=== PATIENT | female | born 1945 | race Caucasian/White ===

== ENCOUNTER 2020-02-29 11:47 | Emergency (ER) | payer OTHER ==
[2020-02-29] MEDS ORDERED: ONDANSETRON 4 MG/2 ML VIAL ONE (12:49)
[2020-02-29] MEDS ORDERED: MECLIZINE HCL 12.5 MG TAB ONE (12:50)
[2020-02-29] MEDS ORDERED: NA CHLORIDE 0.9% 2,000 ML ONE (12:50)
[2020-02-29 12:56] LABS: Absolute Lymphocytes (CBC) 0.8 K/uL (0.7-4.9); Basophils % 0.6 % (0-1.3); Hematocrit 39.5 % (36.0-45.0); Lymphocytes % 12.5 % (15.3-44.8); MPV 8.2 fL (7.6-11.3); RBC Red Blood Cell Count 4.23 M/uL (3.86-4.86)
[2020-02-29 12:57] LABS: Protime INR 0.93
--- NOTE | 2020-02-29 13:10 | RAD REPORT ---
EXAM DESCRIPTION: Humberto Single View02/29/2020 12:57 pm CLINICAL HISTORY: Congestion COMPARISON: none FINDINGS: The lungs appear clear of acute infiltrate. The heart is normal size. 17 millimeter scler otic density overlies the proximal left humerus IMPRESSION: 17 millimeter sclerotic density overlies the proximal left humerus. Follow-up x-ray 2 mo nths recommended to assess stability
[2020-02-29 13:20] LABS: ALT/SGPT 25 U/L (12-78); AST/SGOT 15 U/L (15-37); Alkaline Phosphatase 57 U/L (45-117); BUN Blood Urea Nitrogen 24 mg/dL (7-18); Bicarbonate 28 mmol/L (21-32); Bilirubin Direct 0.1 mg/dL (0-0.2); Bilirubin Total 0.6 mg/dL (0.2-1.0); Glucose Level 122 mg/dL (74-106); Magnesium 2.4 mg/dL (1.8-2.4); NT PRO-BNP 42 pg/mL (<125); Potassium 3.9 mmol/L (3.5-5.1); Protein, Total 7.4 g/dL (6.4-8.2); Sodium Level 141 mmol/L (136-145); Troponin (Emerg Dept Use Only) < 0.02 ng/mL (0.0-0.045)
--- NOTE | 2020-02-29 13:48 | RAD REPORT ---
EXAM DESCRIPTION: CT - Head Brain Wo Cont - 02/29/2020 1:27 pm CLINICAL HISTORY: Dizziness COMPARISON: None. TECHNIQUE: Computed axial tomography of the head was obtained. IV contrast was not requested. All CT scans are performed using dose optimization technique as appropriate and may include automated exposure control or mA/KV adjustment according to patient size. FINDINGS: An intracranial bleed is not seen . The ventricles are normal in caliber. No extra-axial fluid collection is noted. Fluid within the sinuses/ mastoids is not seen. IMPRESSION: No acute intracranial abnormality is seen. If patient's symptoms persist MRI of the bra in would be recommended.
--- NOTE | 2020-02-29 14:29 | ER ---
Nurse's Notes [facility] Name: Migdalia Victor Age: 74 yrs Sex: Female : 1945 Arrival Date: 02/29/2020 Time: 11:49 Bed 7 Private MD: Diagnosis: Dizziness and giddiness-benign positional vertigo Presentation: 02/28 12:07 Chief complaint: Patient states: Dizziness off and on x 1 week ago, reports vomited aa5 once 1 week ago and reports vomiting today. Pt states 'My left ear has been clogged for about a week now". 12:07 Coronavirus screen: Client denies travel out of the [place] in the last 14 days. At this aa5 time, the client does not indicate any symptoms associated with coronavirus-19. Ebola Screen: Patient negative for fever greater than or equal to 101.5 degrees Fahrenheit, and additional compatible Ebola Virus Disease symptoms. Initial Sepsis Screen: Does the patient meet any 2 criteria? No. Patient's initial sepsis screen is negative. Does the patient have a suspected source of infection? No. Patient's initial sepsis screen is negative. Risk Assessment: Do you want to hurt yourself or someone else? Patient reports no desire to harm self or others. Onset of symptoms was 2019. 12:07 Acuity: JULIANA 3 aa5 12:07 Method Of Arrival: Ambulatory aa5 Historical: - Allergies: 12:07 Sulfa (Sulfonamide Antibiotics); aa5 12:07 Other Unknown antibiotic; aa5 - PMHx: 12:07 Arthritis; Asthma; Kidney stones; aa5 - PSHx: 12:07 Kidney stone removal; aa5 - Immunization history:: Adult Immunizations unknown. - Social history:: Smoking status: Patient denies any tobacco usage or history of. Patient/guardian denies using alcohol, street drugs, The patient lives with family. - Family history:: not pertinent. Screenin:25 Abuse screen: Denies threats or abuse. Denies injuries from another. Nutritional ca1 screening: No deficits noted. Tuberculosis screening: No symptoms or risk factors identified. Fall Risk IV access (20 points). Assessment: 12:25 General: Appears in no apparent distress. comfortable, Behavior is calm, cooperative, ca1 appropriate for age. Pain: Denies pain. Neuro: Level of Consciousness is awake, alert, obeys commands, Oriented to person, place, time, situation, Reports dizziness, since yesterday. Cardiovascular: Heart tones S1 S2 present Capillary refill < 3 seconds Patient's skin is warm and dry. Rhythm is sinus rhythm. Respiratory: Airway is patent Respiratory effort is even, unlabored, Respiratory pattern is regular, symmetrical, Breath sounds are clear bilaterally. GI: Abdomen is flat, non-distended, Bowel sounds present X 4 quads. Abd is soft and non tender X 4 quads. Reports nausea, vomiting, since yesterday. : No signs and/or symptoms were reported regarding the genitourinary system. EENT: No signs and/or symptoms were reported regarding the EENT system. Derm: Skin is intact, is healthy with good turgor, Skin is pink, warm \\T\\ dry. Musculoskeletal: Circulation, motion, and sensation intact. Capillary refill < 3 seconds. 13:19 Reassessment: PT to CT via stretcher. ca1 13:39 Reassessment: Patient appears in no apparent distress at this time. Patient and/or ca1 family updated on plan of care and expected duration. Pain level reassessed. Patient is alert, oriented x 3, equal unlabored respirations, skin warm/dry/pink. 14:40 Reassessment: Patient appears in no apparent distress at this time. Patient and/or ca1 family updated on plan of care and expected duration. Pain level reassessed. Patient is alert, oriented x 3, equal unlabored respirations, skin warm/dry/pink. Patient states feeling better. 15:00 Reassessment: Patient is alert, oriented x 3, equal unlabored respirations, skin aa5 warm/dry/pink. Pt ambulatory to restroom with steady gait and without complaints, pt denies dizziness, pt states feeling better. MD notified. . Vital Signs: 12:07 BP 131 / 76; Pulse 78; Resp 18 S; Temp 98.0(O); Pulse Ox 96% on R/A; Weight 63.5 kg aa5 (R); Height 5 ft. 0 in. (152.40 cm) (R); Pain 0/10; 12:58 BP 134 / 69; Pulse 66; Resp 12; Temp 97.8(O); Pulse Ox 97% on R/A; mh5 13:39 BP 136 / 64; Pulse 67; Resp 15 S; Pulse Ox 98% on R/A; ca1 14:40 BP 115 / 69; Pulse 73; Resp 16 S; Pulse Ox 95% on R/A; ca1 12:07 Body Mass Index 27.34 (63.50 kg, 152.40 cm) aa5 ED Course: 11:49 Patient arrived in ED. ag5 12:07 Arm band placed on Patient placed in an exam room, on a stretcher. aa5 12:09 Kanchan Khan MD is Attending Physician. ma2 12:25 Triage completed. aa5 12:26 Patient has correct armband on for positive identification. Placed in gown. Bed in low mh5 position. Call light in reach. Side rails up X2. Warm blanket given. Pillow given. ekg monitor tech on. Pulse ox on. NIBP on. 12:27 Clari Greenwood, ANA is Primary Nurse. ca1 12:27 No provider procedures requiring assistance completed. Initial lab(s) drawn, by me, ca1 sent to lab. Inserted saline lock: 22 gauge in right antecubital area, using aseptic technique. Blood collected. 12:57 XRAY Chest (1 view) In Process Unspecified. EDMS 13:26 CT completed. Patient tolerated procedure well. Patient moved back from CT. bq 13:27 CT Head Brain wo Cont In Process Unspecified. EDMS 15:17 IV discontinued, intact, bleeding controlled, No redness/swelling at site. Pressure ca1 dressing applied. Administered Medications: 12:27 Drug: NS 0.9% 1000 ml Route: IV; Rate: 1 bolus; Site: right antecubital; ca1 13:30 Follow up: Response: No adverse reaction; IV Status: Completed infusion; IV Intake: ca1 1000ml 12:28 Drug: Zofran (Ondansetron) 4 mg Route: IVP; Site: right antecubital; ca1 14:41 Follow up: Response: No adverse reaction; Nausea is decreased ca1 13:09 Drug: Meclizine 50 mg Route: PO; ca1 14:42 Follow up: Response: No adverse reaction; Marked relief of symptoms ca1 13:14 Not Given (Physician Discretion): NS 0.9% 1000 ml IV at 1 bolus Per protocol; 1000 mL ca1 bolus Intake: 13:30 IV: 1000ml; Total: 1000ml. ca1 Outcome: 14:29 Discharge ordered by MD. giraldo 15:17 Discharged to home ambulatory. ca1 15:17 Condition: improved 15:17 Discharge instructions given to patient, Instructed on discharge instructions, follow up and referral plans. medication usage, Demonstrated understanding of instructions, follow-up care, medications, Prescriptions given X 1. 15:18 Patient left the ED. ca1 Signatures: Dispatcher [employer] EDCharlotte Pack Audri, RN RN [id number] Asya Babcock Mohammad, MD MD ma2 Clari Greenwood RN RN ca1 Kim, Sera 5
--- NOTE | 2020-02-29 14:29 | EDPHYS ---
Physician Documentation [facility] Name: Migdalia Victor Age: 74 yrs Sex: Female : 1945 Arrival Date: 02/29/2020 Time: 11:49 Bed 7 Private MD: ED Physician Kanchan Khan HPI: 02/28 14:24 This 74 yrs old Female presents to ER via Ambulatory with complaints of ma2 Dizziness, Vomiting. 14:24 The patient presents with dizziness. Onset: The symptoms/episode began/occurred ma2 gradually, 3 day(s) ago. Context: occurred at home. Associated signs and symptoms: Pertinent negatives: ataxia, blurred vision, combativeness, confusion, diaphoresis, focal weakness. Severity of symptoms: At their worst the symptoms were mild in the emergency department the symptoms have resolved. The patient has experienced a previous episode. on and off vertigo feels room is speiing and hearing issue with left ear.. her symptoms are sudden on and off.. and solely positional . Historical: - Allergies: 12:07 Sulfa (Sulfonamide Antibiotics); aa5 12:07 Other Unknown antibiotic; aa5 - PMHx: 12:07 Arthritis; Asthma; Kidney stones; aa5 - PSHx: 12:07 Kidney stone removal; aa5 - Immunization history:: Adult Immunizations unknown. - Social history:: Smoking status: Patient denies any tobacco usage or history of. Patient/guardian denies using alcohol, street drugs, The patient lives with family. - Family history:: not pertinent. ROS: 14:24 Constitutional: Negative for fever, chills, and weight loss. ma2 14:24 All other systems are negative. Exam: 14:24 Constitutional: This is a well developed, well nourished patient who is awake, alert, ma2 and in no acute distress. Head/Face: Normocephalic, atraumatic. Eyes: Pupils equal round and reactive to light, extra-ocular motions intact. Lids and lashes normal. Conjunctiva and sclera are non-icteric and not injected. Cornea within normal limits. Periorbital areas with no swelling, redness, or edema. ENT: Nares patent. No nasal discharge, no septal abnormalities noted. Tympanic membranes are normal and external auditory canals are clear. Oropharynx with no redness, swelling, or masses, exudates, or evidence of obstruction, uvula midline. Mucous membranes moist. Neck: Trachea midline, no thyromegaly or masses palpated, and no cervical lymphadenopathy. Supple, full range of motion without nuchal rigidity, or vertebral point tenderness. No Meningismus. Chest/axilla: Normal chest wall appearance and motion. Nontender with no deformity. No lesions are appreciated. Cardiovascular: Regular rate and rhythm with a normal S1 and S2. No gallops, murmurs, or rubs. Normal PMI, no JVD. No pulse deficits. Respiratory: Lungs have equal breath sounds bilaterally, clear to auscultation and percussion. No rales, rhonchi or wheezes noted. No increased work of breathing, no retractions or nasal flaring. Abdomen/GI: Soft, non-tender, with normal bowel sounds. No distension or tympany. No guarding or rebound. No evidence of tenderness throughout. Back: No spinal tenderness. No costovertebral tenderness. Full range of motion. MS/ Extremity: Pulses equal, no cyanosis. Neurovascular intact. Full, normal range of motion. Neuro: Awake and alert, GCS 15, oriented to person, place, time, and situation. Cranial nerves II-XII grossly intact. Motor strength 5/5 in all extremities. Sensory grossly intact. Cerebellar exam normal. Normal gait. Psych: Awake, alert, with orientation to person, place and time. Behavior, mood, and affect are within normal limits. Vital Signs: 12:07 BP 131 / 76; Pulse 78; Resp 18 S; Temp 98.0(O); Pulse Ox 96% on R/A; Weight 63.5 kg aa5 (R); Height 5 ft. 0 in. (152.40 cm) (R); Pain 0/10; 12:58 BP 134 / 69; Pulse 66; Resp 12; Temp 97.8(O); Pulse Ox 97% on R/A; mh5 13:39 BP 136 / 64; Pulse 67; Resp 15 S; Pulse Ox 98% on R/A; ca1 14:40 BP 115 / 69; Pulse 73; Resp 16 S; Pulse Ox 95% on R/A; ca1 12:07 Body Mass Index 27.34 (63.50 kg, 152.40 cm) aa5 MDM: 12:09 Patient medically screened. ma2 14:24 Differential diagnosis: head injury, hypovolemia, vertigo. Data reviewed: vital signs, ma2 nurses notes. Counseling: I had a detailed discussion with the patient and/or guardian regarding: the historical points, exam findings, and any diagnostic results supporting the discharge/admit diagnosis, the presence of at least one elevated blood pressure reading (>120/80) during this emergency department visit, the need for outpatient follow up. Response to treatment: the patient's symptoms have markedly improved after treatment. 02/28 12:28 Order name: Basic Metabolic Panel; Complete Time: 13:36 dc02/28 12:28 Order name: CBC with Diff; Complete Time: 13:16 dc02/28 12:28 Order name: LFT's; Complete Time: 13:36 dc02/28 12:28 Order name: Magnesium; Complete Time: 13:36 02/28 12:28 Order name: NT PRO-BNP; Complete Time: 13:36 dc02/28 12:28 Order name: PT-INR; Complete Time: 13:16 dc02/28 12:28 Order name: CT Head Brain wo Cont; Complete Time: 14:02 dc2 02/28 12:28 Order name: Troponin (emerg Dept Use Only); Complete Time: 13:36 ma02/28 12:28 Order name: XRAY Chest (1 view); Complete Time: 13:16 02/28 12:28 Order name: EKG; Complete Time: 12:28 dc02/28 12:28 Order name: Cardiac monitoring; Complete Time: 12:27 02/28 12:28 Order name: EKG - Nurse/Tech; Complete Time: 12:27 02/28 12:28 Order name: IV Saline Lock; Complete Time: 12:45 02/28 12:28 Order name: Labs collected and sent; Complete Time: 12:46 dc02/28 12:28 Order name: O2 Per Protocol; Complete Time: 12:46 02/28 12:28 Order name: O2 Sat Monitoring; Complete Time: 12:46 ma2 Administered Medications: 12:27 Drug: NS 0.9% 1000 ml Route: IV; Rate: 1 bolus; Site: right antecubital; ca1 13:30 Follow up: Response: No adverse reaction; IV Status: Completed infusion; IV Intake: ca1 1000ml 12:28 Drug: Zofran (Ondansetron) 4 mg Route: IVP; Site: right antecubital; ca1 14:41 Follow up: Response: No adverse reaction; Nausea is decreased ca1 13:09 Drug: Meclizine 50 mg Route: PO; ca1 14:42 Follow up: Response: No adverse reaction; Marked relief of symptoms ca1 13:14 Not Given (Physician Discretion): NS 0.9% 1000 ml IV at 1 bolus Per protocol; 1000 mL ca1 bolus Disposition: 02/29/20 14:29 Discharged to Home. Impression: Dizziness and giddiness - benign positional vertigo. - Condition is Stable. - Discharge Instructions: Benign Positional Vertigo. - Prescriptions for Meclizine 25 mg Oral Tablet - take 1 tablet by ORAL route every 8 hours As needed; 30 tablet. - Medication Reconciliation Form, Thank You Letter, Antibiotic Education, Prescription Opioid Use form. - Follow up: Private Physician; When: Tomorrow; Reason: If symptoms return, Continuance of care. Signatures: Dispatcher [employer] EDJunie Argueta RN RN aa5 Kanchan Khan MD MD ma2 Clari Greenwood RN RN ca1 Corrections: (The following items were deleted from the chart) 15:18 14:29 02/29/2020 14:29 Discharged to Home. Impression: Dizziness and giddiness - benign ca1 positional vertigo. Condition is Stable. Forms are Medication Reconciliation Form, Thank You Letter, Antibiotic Education, Prescription Opioid Use. Follow up: Private Physician; When: Tomorrow; Reason: If symptoms return, Continuance of care. ma2
[2020-03-01 12:56] VITALS: TEMP 97.8
[2020-03-01 12:58] VITALS: BP 115/69; O2SAT 95
--- NOTE | 2020-03-02 05:22 | EKG ---
Test Date: 2020-02-29 Test Time: 12:36:58 Waiter/Waitress Second Class: EDEL MEASUREMENT RESULTS: Intervals: Rate: 69 [place]: 192 QRSD: 116 QT: 412 QTc: 441 [place]: P: 73 [place]: 192 QRS: -58 T: 30 INTERPRETIVE STATEMENTS: Normal sinus rhythm Left anterior fascicular block Left ventricular hypertrophy with QRS widening Abnormal ECG No previous ECG available for comparison Electronically Signed On 03-02-20 05:20:37 CDT by Clint Contreras
== END 2020-02-29 15:18 | disposition home or self-care (01) ==
LOC: ER 11:47
DX: H81.10 Benign paroxysmal vertigo, unspecified ear (principal); Z88.1 Allergy status to other antibiotic agents; Z88.2 Allergy status to sulfonamides
CPT/HCPCS: 96361; 93005; 85025; 80048; 36415; 83735; 85610; 80076; 84484; 83880; 70450; 71045; 96374; 99285; J7030; J2405; J8597

== ENCOUNTER 2020-05-06 18:34 | Emergency (ER) | payer OTHER ==
[2020-05-06] MEDS ORDERED: NA CHLORIDE 0.9% 1,000 ML ONE (19:40)
[2020-05-06] MEDS ORDERED: ACETAMINOPHEN 500 MG TAB ONE (19:46)
[2020-05-06 19:54] LABS: ALT/SGPT 26 U/L (12-78); AST/SGOT 20 U/L (15-37); Albumin 3.9 g/dL (3.4-5.0); Alkaline Phosphatase 71 U/L (45-117); BUN Blood Urea Nitrogen 21 mg/dL (7-18); Bicarbonate 26 mmol/L (21-32); Bilirubin Direct < 0.1 mg/dL (0-0.2); Bilirubin Total 0.4 mg/dL (0.2-1.0); Glucose Level 108 mg/dL (74-106); Lipase 102 U/L (73-393); Potassium 3.6 mmol/L (3.5-5.1); Protein, Total 6.9 g/dL (6.4-8.2); Sodium Level 140 mmol/L (136-145)
[2020-05-06 19:57] LABS: CKMB Creatine Kinase MB 4.3 ng/mL (0.3-3.6); Creatine Phosphokinase 379 U/L (26-192); NT PRO-BNP 67 pg/mL (<125); Troponin (Emerg Dept Use Only) < 0.02 ng/mL (0.0-0.045)
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
--- NOTE | 2020-05-06 20:55 | RAD REPORT ---
EXAM DESCRIPTION: Humberto Single View05/06/2020 7:42 pm CLINICAL HISTORY: Chest pain COMPARISON: February 2020 FINDINGS: The lungs appear clear of acute infiltrate. The heart is normal size IMPRESSION: No acute abnormalities displayed
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
[2020-05-06] MEDS ORDERED: KETOROLAC 30 MG/ML INJ ONE (21:04)
[2020-05-06 23:39] VITALS: TEMP 98.2
[2020-05-06 23:47] VITALS: BP 125/85; O2SAT 99
--- NOTE | 2020-05-09 07:49 | EKG ---
Test Date: 2020-05-06 Test Time: 19:27:30 [employer] Coater Machine Operator: ADDIS MEASUREMENT RESULTS: Intervals: Rate: 86 [place]: 180 QRSD: 110 QT: 378 QTc: 452 [place]: P: 56 [place]: 180 QRS: -54 T: 37 INTERPRETIVE STATEMENTS: Normal sinus rhythm Left anterior fascicular block Minimal voltage criteria for LVH, may be normal variant Abnormal ECG Compared to ECG 02/29/2020 12:36:58 No significant changes Electronically Signed On 05-09-20 07:41:47 CENTERLESS GRINDER TENDER by Clint Contreras
== END 2020-05-06 21:03 | disposition home or self-care (01) ==
LOC: ER 18:34
DX: S16.1XXA Strain of muscle, fascia and tendon at neck level, initial encounter (principal); S30.1XXA Contusion of abdominal wall, initial encounter; V49.50XA Passenger injured in collision with unspecified motor vehicles in traffic accident, initial encounter; Z88.1 Allergy status to other antibiotic agents
CPT/HCPCS: 96361; 93005; 80048; 86900; 86850; 82550; 86901; 80076; 84484; 82553; 83690; 83880; 70450; 72125; 71260; 74177; 71045; 72170; 96374; 99285; Q9967; J7030; G0390

== ENCOUNTER 2025-02-13 10:27 | Emergency (ER) | payer OTHER ==
[2025-02-13] MEDS ORDERED: NA CHLORIDE 0.9% 1,000 ML ONE (10:47)
[2025-02-13] MEDS ORDERED: KETOROLAC 30 MG/ML INJ ONE (10:47)
--- NOTE | 2025-02-13 11:28 | RAD REPORT ---
EXAMINATION: CT Abdomen Pelvis Wo Contrast CLINICAL INDICATION: Female, 79 years old. FLANK PAIN TECHNIQUE: CT abdomen and pelvis was performed, without IV contrast, as per department protocol. Axia l, sagittal and coronal reconstructions were obtained. One or more of the following dose reduction techniques were used: Automated exposure control, adjustment of the mA and kV according to the patien t size, and iterative reconstruction. Unless otherwise specified, incidental findings do not require dedicated imaging follow-up. COMPARISON: No prior exam. FINDINGS: The lack of intravenous contrast limits the sensitivity of this exam for evaluation of solid visceral organs, vascular structures, and retroperitoneum. LOWER CHEST: The visualized lung bases are clear. LIVER: Normal in size and contour. No focal lesion. BILIARY SYSTEM: Decompressed gallbladder limiting evaluation. No suspicious abnormalities. SPLEEN: Normal size. No focal lesion. PANCREAS: No mass, ductal dilation, or alyssa-pancreatic fluid. ADRENALS: Normal; no mass. KIDNEYS AND URETERS: Normal size and contour. No hydronephrosis. URINARY BLADDER: Decompressed limiting evaluation GASTROINTESTINAL TRACT: No evidence of bowel obstruction, significant free fluid, free air or abscess . APPENDIX: Normal appendix. LYMPH NODES: No lymphadenopathy. MUSCULOSKELETAL: No acute osseous abnormality. Advanced lumbar spine degenerative changes with dextro convex scoliosis with apex at L1-2 ADDITIONAL FINDINGS: None. IMPRESSION:. No acute or concerning abnormalities in the abdomen or pelvis, with evaluation limited by lack of IV contrast. Incidental findings as above.
[2025-02-13 11:31] LABS: Absolute Lymphocytes (CBC) 1.4 K/uL (0.7-4.9); Hematocrit 36.2 % (36.0-45.0); Hemoglobin 12.4 g/dL (12.0-15.0); MCH 31.8 pg (27.0-35.0); MCHC 34.1 g/dL (32.0-36.0); MCV 93.3 fL (80-100); MPV 7.8 fL (7.6-11.3); Nucleated RBC Absolute Count 0.0 (0-0); Nucleated Red Blood Cells % 0.0 % (0-0); RBC Red Blood Cell Count 3.88 M/uL (3.86-4.86); White Blood Count 5.60 thou/uL (4.3-10.9)
[2025-02-13 11:57] LABS: ALT/SGPT 31.0 U/L (13-56); AST/SGOT 18.0 U/L (15-37); Albumin 3.7 g/dL (3.4-5.0); Albumin/Globulin Ratio 1.2 (1.1-1.8); Alkaline Phosphatase 49.0 U/L (45-117); Anion Gap 9.0 mEq/L (5.0-15.0); BUN Blood Urea Nitrogen 16.0 mg/dL (7-18); Globulin 3.1 g/dL (2.3-3.5); Glucose Level 96.0 mg/dL (74-106); Lipase 25.0 U/L (13-75); Potassium 4.0 mEq/L (3.5-5.1)
[2025-02-13 12:15] LABS: Sqamous Epithelial <5 /HPF (None Seen); Urine Culture Reflex Order NOT NEEDED; Urine Microscopic Reflex YN ORDER UMIC
--- NOTE | 2025-02-13 12:24 | EDPHYS ---
Physician Documentation [facility] Name: Migdalia Victor Age: 79 yrs Sex: Female : 1945 Arrival Date: 02/13/2025 Time: 10:27 Bed 15 Private MD: ED Physician Miriam Butler HPI: 02/13 10:46 This 79 yrs old Female presents to ER via Ambulatory with complaints of Low Back Pain. sp3 10:46 79-year-old female history of arthritis, kidney stones, with recent UTI diagnosis at 3 local urgent care now presents with continued left-sided flank pain and dysuria. She denies any fever, headache, chest pain, shortness of breath, right-sided symptoms, syncope, bleeding, gross visualized hematuria, or any other signs or symptoms on ROS at this time.. Historical: - Allergies: 10:45 Cephalexin; cm10 10:45 Other Unknown antibiotic; cm10 10:45 Sulfa (Sulfonamide Antibiotics); cm10 - PMHx: 10:45 Arthritis; Asthma; Kidney stones; cm10 - Immunization history:: Adult Immunizations up to date. - Infectious Disease History:: Denies. - Social history:: Smoking status: Patient denies any tobacco usage or history of. ROS: 10:47 Constitutional: Negative for fever, chills, and weight loss, Eyes: Negative for injury, sp3 pain, redness, and discharge, ENT: Negative for injury, pain, and discharge, Neck: Negative for injury, pain, and swelling, Cardiovascular: Negative for chest pain, palpitations, and edema, Respiratory: Negative for shortness of breath, cough, wheezing, and pleuritic chest pain, MS/Extremity: Negative for injury and deformity, Skin: Negative for injury, rash, and discoloration, Neuro: Negative for headache, weakness, numbness, tingling, and seizure, 10:47 All other systems are negative, Exam: 10:47 Constitutional: This is a well developed, well nourished patient who is awake, alert, sp3 and in no acute distress. Head/Face: Normocephalic, atraumatic. Eyes: Pupils equal round and reactive to light, extra-ocular motions intact. Lids and lashes normal. Conjunctiva and sclera are non-icteric and not injected. Cornea within normal limits. Periorbital areas with no swelling, redness, or edema. Neck: Trachea midline, no thyromegaly or masses palpated, and no cervical lymphadenopathy. Supple, full range of motion without nuchal rigidity, or vertebral point tenderness. No Meningismus. Chest/axilla: Normal chest wall appearance and motion. Nontender with no deformity. No lesions are appreciated. Cardiovascular: Regular rate and rhythm with a normal S1 and S2. No gallops, murmurs, or rubs. Normal PMI, no JVD. No pulse deficits. Respiratory: Lungs have equal breath sounds bilaterally, clear to auscultation and percussion. No rales, rhonchi or wheezes noted. No increased work of breathing, no retractions or nasal flaring. Abdomen/GI: Soft, non-tender, with normal bowel sounds. No distension or tympany. No guarding or rebound. No evidence of tenderness throughout. Skin: Warm, dry with normal turgor. Normal color with no rashes, no lesions, and no evidence of cellulitis. MS/ Extremity: Pulses equal, no cyanosis. Neurovascular intact. Full, normal range of motion. Neuro: Awake and alert, GCS 15, oriented to person, place, time, and situation. Cranial nerves II-XII grossly intact. Motor strength 5/5 in all extremities. Sensory grossly intact. Cerebellar exam normal. Normal gait. Psych: Awake, alert, with orientation to person, place and time. Behavior, mood, and affect are within normal limits. 10:47 Back: Left-sided CVA tenderness noted. No pain to palpation in the abdomen., Vital Signs: 10:44 BP 171 / 85; Pulse 88; Resp 15; Temp 98.2; Pulse Ox 98% on R/A; Weight 64.41 kg; Height cm10 4 ft. 11 in. ; Pain 8/10; 11:00 BP 116 / 85; Pulse 78; Resp 18; Pulse Ox 96% on R/A; cm10 12:00 BP 150 / 71; Pulse 77; Resp 16; Pulse Ox 97% ; cm10 12:06 Pain 4/10; cm10 10:44 Body Mass Index 28.68 (64.41 kg, 149.86 cm) cm10 10:44 Pain Scale: Adult cm10 12:06 Pain Scale: Adult cm10 MDM: 10:35 Medical Screening Exam initiated sp3 10:48 Data reviewed: vital signs, nurses notes, lab test result(s), radiologic studies. ED sp3 course: 79-year-old female with PMH above now with left flank pain extending into her abdomen in the setting of UTI diagnosis as an outpatient. Differential diagnosis includes UTI/pyelonephritis spectrum, ureterolithiasis/kidney stone spectrum, colitis, functional abdominal pain, among others. I am not highly suspicious of acute coronary syndrome, PE, TAD, AAA, or any other critical process. Workup will include CT scan of the abdomen pelvis, UA, general labs. IV fluids and ketorolac also given. Disposition pending workup and patient course.. 12:21 ED course: Full workup negative. Mild leukocyte esterase noted on her UA. We will sp3 switch her antibiotic to Cipro and discharged her with that and tramadol cleared for travel.. 02/13 10:44 Order name: CBC with Diff; Complete Time: 12:20 sp3 02/13 10:44 Order name: CMP; Complete Time: 12:20 sp3 02/13 10:44 Order name: Lipase; Complete Time: 12:20 sp3 02/13 10:44 Order name: UA Rfx Curtis Cult if indicated; Complete Time: 12:20 sp3 02/13 10:44 Order name: CT Abd/Pelvis - Without Contrast; Complete Time: 11:31 sp3 02/13 10:44 Order name: IV Saline Lock; Complete Time: 11:09 sp3 02/13 10:44 Order name: Labs collected and sent; Complete Time: 11:09 sp3 Administered Medications: 11:09 Drug: TORadol - Ketorolac IVP 15 mg IVP once Route: IVP; Site: left antecubital; cm10 12:06 Follow up: Pain 4/10 Adult; Response: No adverse reaction; Pain is decreased cm10 11:09 Drug: NS 0.9% IV 1000 ml IV at 1 bolus Per protocol; to be given as a bolus over 60 cm10 minutes Route: IV; Rate: 1 bolus; Site: left antecubital; 12:06 Follow up: Response: No adverse reaction; IV Status: Completed infusion; IV Intake: cm10 1000ml Disposition Summary: 02/13/25 12:23 Discharge Ordered Notes: Location: Home sp3 Condition: Stable sp3 Diagnosis - UTI/flank pain sp3 Followup: sp3 - With: Private Physician - When: Upon discharge from the Emergency Department - Reason: If symptoms return, Continuance of care Discharge Instructions: - Discharge Summary Sheet sp3 - Urinary Tract Infection, Adult sp3 Forms: - Medication Reconciliation Form sp3 - Antibiotic Education sp3 - Prescription Opioid Use sp3 - Patient Portal Instructions sp3 - Leadership Thank You Letter sp3 Prescriptions: - Cipro 500 mg Oral tablet - take 1 tablet ORAL route every 12 hours for 7 days; 14 tablet; Refills: 0, sp3 Product Selection Permitted - Tramadol 50 mg Oral Tablet - take 1 tablet ORAL route every 8 hours as needed; 12 tablet; Refills: 0, sp3 Product Selection Permitted Signatures: Dispatcher [employer] EDMS Miriam Butler MD MD sp3 Amber Babcock RN RN cm10 Corrections: (The following items were deleted from the chart) 10:45 10:45 CBC+H.LAB.BRZ ordered. EDMS EDMS 10:45 10:45 COMPREHENSIVE METABOLIC PANEL+C.LAB.BRZ ordered. EDMS EDMS 10:45 10:45 LIPASE+C.LAB.BRZ ordered. EDMS EDMS 10:45 10:45 UA Rfx Curtis Cult if indicated+U.LAB.BRZ ordered. EDMS EDMS 10:45 10:45 Abdomen Pelvis Wo Con+CT.RAD.BRZ ordered. EDMS EDMS 10:49 10:48 ED course: 79-year-old female with PMH above now with left flank pain extending sp3 into her abdomen in the setting of UTI diagnosis as an outpatient. Differential diagnosis includes UTI/pyelonephritis spectrum, ureterolithiasis/kidney stone spectrum, colitis, functional abdominal pain, among others. I am not highly suspicious of acute coronary syndrome, PE, TAD, AAA, or any other critical process.. sp3
--- NOTE | 2025-02-13 12:24 | ER ---
Nurse's Notes [facility] Name: Migdalia Victor Age: 79 yrs Sex: Female : 1945 Arrival Date: 02/13/2025 Time: 10:27 Bed 15 Private MD: Diagnosis: UTI/flank pain Presentation: 02/13 10:44 Chief complaint: Patient states: Left sided flank pain onset 1 week ago. Pt seen at [facility] urgent care on 02/11 and was started on macrobid and Toradol. Pt states that pain is not improving. Coronavirus screen: Client denies travel out of the [place] in the last 14 days. Ebola Screen: Patient denies travel to an Ebola-affected area in the 21 days before illness onset. Initial Sepsis Screen: Does the patient meet any 2 criteria? No. Patient's initial sepsis screen is negative. Does the patient have a suspected source of infection? No. Patient's initial sepsis screen is negative. Risk Assessment: Do you want to hurt yourself or someone else? Patient reports no desire to harm self or others. Onset of symptoms was February 13, 2025. 10:44 Method Of Arrival: Ambulatory [facility] 10:44 Acuity: JULIANA 3 cm10 Triage Assessment: 10:45 General: Appears in no apparent distress. uncomfortable, Behavior is calm, cooperative. cm10 Pain: Complains of pain in left flank Pain does not radiate. Pain currently is 8 out of 10 on a pain scale. Quality of pain is described as sharp. Neuro: No deficits noted. Level of Consciousness is awake, alert, obeys commands, Oriented to person, place, time, situation, Appropriate for age. Respiratory: No deficits noted. Airway is patent Respiratory effort is even, unlabored, Respiratory pattern is regular, symmetrical. : Reports pain in left flank(s). Musculoskeletal: No deficits noted. Range of motion: intact in all extremities. Historical: - Allergies: 10:45 Cephalexin; cm10 10:45 Other Unknown antibiotic; cm10 10:45 Sulfa (Sulfonamide Antibiotics); cm10 - PMHx: 10:45 Arthritis; Asthma; Kidney stones; cm10 - Immunization history:: Adult Immunizations up to date. - Infectious Disease History:: Denies. - Social history:: Smoking status: Patient denies any tobacco usage or history of. Screenin:46 [facility] ED Fall Risk Assessment (Adult) History of falling in the last 3 months, cm10 including since admission No falls in past 3 months (0 pts) Confusion or Disorientation No (0 pts) Intoxicated or Sedated No (0 pts) Impaired Gait No (0 pts) Mobility Assist Device Used No (0 pt) Altered Elimination No (0 pt) Score/Fall Risk Level 0 - 2 = Low Risk Oriented to surroundings, Maintained a safe environment, Hourly rounding (assess needs \T\ fall precautionary measures) done. Abuse screen: Denies threats or abuse. Denies injuries from another. Nutritional screening: No deficits noted. Tuberculosis screening: No symptoms or risk factors identified. Assessment: 12:06 Reassessment: Patient appears in no apparent distress at this time. Patient and/or cm10 family updated on plan of care and expected duration. Pain level reassessed. Patient is alert, oriented x 3, equal unlabored respirations, skin warm/dry/pink. Patient states feeling better. Patient states symptoms have improved. Vital Signs: 10:44 BP 171 / 85; Pulse 88; Resp 15; Temp 98.2; Pulse Ox 98% on R/A; Weight 64.41 kg; Height cm10 4 ft. 11 in. ; Pain 8/10; 11:00 BP 116 / 85; Pulse 78; Resp 18; Pulse Ox 96% on R/A; cm10 12:00 BP 150 / 71; Pulse 77; Resp 16; Pulse Ox 97% ; cm10 12:06 Pain 4/10; cm10 10:44 Body Mass Index 28.68 (64.41 kg, 149.86 cm) cm10 10:44 Pain Scale: Adult cm10 12:06 Pain Scale: Adult cm10 ED Course: 10:29 Patient arrived in ED. rg4 10:32 Miriam Butler MD is Attending Physician. sp3 10:44 Amber Babcock, ANA is Primary Nurse. cm10 10:45 Triage completed. cm10 10:46 Arm band placed on right wrist. Patient placed in an exam room, on a stretcher. cm10 10:55 CT Abd/Pelvis - Without Contrast In Process Unspecified. EDMS 11:09 Patient has correct armband on for positive identification. Placed in gown. Bed in low cm10 position. Call light in reach. Side rails up X 1. Pulse ox on. NIBP on. 11:09 UA Rfx Curtis Cult if indicated Sent. cm10 11: CBC with Diff Sent. cm10 11: CMP Sent. cm10 11: Lipase Sent. cm10 11:09 Initial lab(s) drawn, by me, sent to lab. Urine collected: clean catch specimen, cm10 cloudy. Inserted saline lock: 20 gauge in left antecubital area, using aseptic technique. Blood collected. Flushed with 10 mL NS. 12:43 Provided Education on: Follow-up instructions. cm10 12:44 No provider procedures requiring assistance completed. IV discontinued, intact, cm10 bleeding controlled, No redness/swelling at site. Pressure dressing applied. Administered Medications: 11: Drug: TORadol - Ketorolac IVP 15 mg IVP once Route: IVP; Site: left antecubital; cm10 12:06 Follow up: Pain 4/10 Adult; Response: No adverse reaction; Pain is decreased cm10 11:09 Drug: NS 0.9% IV 1000 ml IV at 1 bolus Per protocol; to be given as a bolus over 60 cm10 minutes Route: IV; Rate: 1 bolus; Site: left antecubital; 12:06 Follow up: Response: No adverse reaction; IV Status: Completed infusion; IV Intake: cm10 1000ml Medication: 10:46 VIS not applicable for this client. cm10 Intake: 12:06 IV: 1000ml; Total: 1000ml. cm10 Outcome: 12:23 Discharge ordered by . sp3 12:44 Discharged to home ambulatory, with significant other, cm10 12:44 Condition: good 12:44 Discharge instructions given to patient, Instructed on discharge instructions, follow up and referral plans. medication usage, Demonstrated understanding of instructions, follow-up care, medications, Prescriptions given X 2, 12:44 Patient left the ED. cm10 Signatures: Dispatcher [employer] EDMS Priyanka Veloz rg4 Miriam Butler MD MD sp3 Amber Babcock RN RN cm10
[2025-02-13 12:49] VITALS: TEMP 98.2
[2025-02-13 12:52] VITALS: BP 150/71; O2SAT 97
== END 2025-02-13 12:44 | disposition home or self-care (01) ==
LOC: ER 10:27
DX: N39.0 Urinary tract infection, site not specified (principal); Z87.442 Personal history of urinary calculi
CPT/HCPCS: 96361; 85025; 81001; 36415; 83690; 80053; 74176; 96374; 99284; J7030